=== PATIENT | male | born 1945 | race Caucasian/White ===

== ENCOUNTER 2024-06-07 10:57 | Observation (INO) | payer OTHER ==
[~2024-06-07] VITALS: Ht 177.8 cm; Wt 62.6 kg
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
--- NOTE | 2024-06-07 12:35 | EKG ---
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
[2024-06-07 12:40] LABS: BASOPHILS # (AUTO) 0.03 K/uL (0.00-0.20); BASOPHILS % (AUTO) 0.5 % (0.0-5.0); EOSINOPHILS # (AUTO) 0.13 K/uL (0.00-0.70); EOSINOPHILS % (AUTO) 2.2 % (0.0-8.0); HEMATOCRIT 39.5 % (42-54); IMMATURE GRANULOCYTE ABSOLUTE 0.01 K/uL (0-1); LYMPHOCYTES # (AUTO) 1.6 K/uL (1.0-4.8); LYMPHOCYTES % (AUTO) 26.5 % (21.0-51.0); MEAN CORPUSCULAR HEMOGLOBIN 30.9 pg (27.0-33.0); MEAN CORPUSCULAR HGB CONC 32.2 g/dL (32.0-36.0); MEAN CORPUSCULAR VOLUME 96.1 fL (79-99); MONOCYTES # (AUTO) 0.6 K/uL (0.1-1.0); NEUTROPHILS # (AUTO) 3.6 K/uL (1.8-7.7); NEUTROPHILS % (AUTO) 60.6 % (40.0-77.0); PLATELET COUNT (AUTO) 297 K/uL (130-400); RED BLOOD CELL COUNT(AUTO) 4.11 MIL/uL (4.50-6.20); RED CELL DISTRIBUTION WIDTH 14.7 % (11.0-15.5)
[2024-06-07 12:49] LABS: INR 0.96 (0.85-1.15); PROTHROMBIN TIME 10.2 SEC (9.6-11.6)
[2024-06-07 12:50] LABS: APPEARANCE,URINE CLEAR (CLEAR); BILIRUBIN,URINE NEGATIVE (NEGATIVE); COLOR,URINE YELLOW (YELLOW); GLUCOSE, URINE (UA) NEGATIVE (NEGATIVE); KETONES,URINE NEGATIVE (NEGATIVE); LEUKOCYTE ESTERASE ,URINE 25 Leu/uL (NEGATIVE); NITRATE,URINE NEGATIVE (NEGATIVE); OCCULT BLOOD,URINE NEGATIVE (NEGATIVE); PROTEIN,URINE NEGATIVE (NEGATIVE); UROBILINOGEN,URINE 0.2 mg/dL (0.2-1.0)
[2024-06-07 12:50] LABS: PARTIAL THROMBOPLASTIN TIME 26.3 SEC (26.3-35.5)
[2024-06-07 12:53] LABS: ADD UA MICROSCOPIC YES
[2024-06-07 12:55] LABS: ALBUMIN 2.9 g/dL (3.5-5.0); BILIRUBIN,DIRECT 0.1 mg/dL (0.0-0.3); BILIRUBIN,TOTAL 0.3 mg/dL (0.2-1.0); CREATININE 0.7 mg/dL (0.5-1.3); POTASSIUM 4.6 mmol/L (3.5-5.1); TOTAL PROTEIN, SERUM 5.9 g/dL (6.0-8.3)
[2024-06-07 12:57] LABS: BACTERIA,URINE RARE /HPF (None Seen); MUCUS,URINE RARE LPF (None Seen); RBC,URINE 0-1 /HPF (0-1); SQUAMOUS EPITHELIAL CELL,UR RARE /HPF (0-2)
--- NOTE | 2024-06-07 15:13 | HMCIMG ---
US ABDOMINAL RUQ\E\LTD HISTORY: Right upper abdominal pain COMPARISON: None TECHNIQUE: Right upper quadrant abdominal ultrasound study was performed. FINDINGS: The study is limited due to overlying bowel gas. The visualized portion of the pancreas is within normal limits. Liver measures 15 cm. No gallstone is seen. Common duct measures 4 mm. No evidence of gallbladder wall thickening is seen. Right kidney measures 11.1 x 3.7 x 5 cm. No hydronephrosis is seen of the right kidney. IMPRESSION: 1. No gallstones or ductal dilatation is seen. 2. No hydronephrosis is seen.
[2024-06-07] MEDS ORDERED: IOHEXOL-350 75 ML VIAL IV ONE (15:56)
--- NOTE | 2024-06-07 16:25 | HMCIMG ---
CT ABDOMEN/PELVIS W/CONTRAST HISTORY: Nausea and vomiting COMPARISON: None TECHNIQUE: Multiple sequential axial images of the abdomen and pelvis were obtained from the dome of the diaphragm through symphysis pubis. Patient was not given contrast through intravenous route. Oral contrast was not given. FINDINGS: No pleural effusion is seen bilaterally. Calcified granuloma is seen in the left lower lobe posteriorly. There is no evidence of parenchymal disease or pulmonary nodule of the visualized lower lungs. Degenerative changes of the thoracolumbar spine are present. The heart is not enlarged. There is moderate size hiatal hernia. Small bowel dilatation is seen with fluid-filled may be related to enteritis with early bowel obstruction not excluded. There is diverticulosis. There is dextroscoliosis. The liver, spleen, adrenal glands and pancreas are unremarkable. There is no evidence of hydronephrosis bilaterally. No evidence of renal stone is seen. Fecal material is seen in the colon. There are normal size retroperitoneal and mesenteric lymph nodes. No ascites is seen. Atherosclerotic changes are present. Pelvic sidewalls are symmetric bilaterally. Bladder is well distended without wall thickening. IMPRESSION: 1. Small bowel dilatation is seen with fluid-filled may be related to enteritis with early bowel obstruction not excluded. There is diverticulosis. CT was performed with one or more following dose reduction techniques: automated exposure control, adjustment of the mA and kv according to patient's size, or use of a iterative reconstruction technique.
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
[2024-06-07] MEDS ORDERED: PoTASSium chloRIDE 20MEQ/100ML 100 ML IV PRN (19:00)
[2024-06-07] MEDS ORDERED: MAGNESIUM 2GM PREMIX 50ML 50 ML IV PRN (19:00)
[2024-06-07] MEDS: 0.9%NACL 1000ML 1,000 ML IV SCH (19:12)
[2024-06-07] MEDS ORDERED: LEVO50CA4 PO (20:32)
--- NOTE | 2024-06-07 20:32 | NUR ---
MED RECONCILIATION DONE
--- NOTE | 2024-06-07 20:38 | NUR ---
REPORT GIVEN TO STEPHANIE NG. PT GOING TO RM [id number]
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
[2024-06-07 20:45] VITALS: O2SAT 99
[2024-06-07 20:47] VITALS: BP 158/93; PULSE 76; RESP 19; TEMP 97.5
[2024-06-07] MEDS: FAMOTIDINE 20MG VIAL IV SCH (23:59)
[2024-06-08] VITALS: BP 129/68; PULSE 74; RESP 18; TEMP 98.6
[2024-06-08 04:00] VITALS: BP 125/70; PULSE 77; RESP 18; TEMP 98.2
[2024-06-08 05:04] LABS: BASOPHILS # (AUTO) 0.03 K/uL (0.00-0.20); BASOPHILS % (AUTO) 0.8 % (0.0-5.0); EOSINOPHILS # (AUTO) 0.24 K/uL (0.00-0.70); EOSINOPHILS % (AUTO) 6.1 % (0.0-8.0); IMMATURE GRANULOCYTE ABSOLUTE 0.01 K/uL (0-1); LYMPHOCYTES # (AUTO) 1.6 K/uL (1.0-4.8); LYMPHOCYTES % (AUTO) 41.7 % (21.0-51.0); MEAN CORPUSCULAR HEMOGLOBIN 30.9 pg (27.0-33.0); MEAN CORPUSCULAR HGB CONC 32.9 g/dL (32.0-36.0); MEAN CORPUSCULAR VOLUME 93.7 fL (79-99); MONOCYTES # (AUTO) 0.5 K/uL (0.1-1.0); MONOCYTES % (AUTO) 12.5 % (3.0-13.0); NEUTROPHILS # (AUTO) 1.5 K/uL (1.8-7.7); NEUTROPHILS % (AUTO) 38.6 % (40.0-77.0); PLATELET COUNT (AUTO) 226 K/uL (130-400); RED BLOOD CELL COUNT(AUTO) 3.63 MIL/uL (4.50-6.20); RED CELL DISTRIBUTION WIDTH 14.5 % (11.0-15.5); WHITE BLOOD COUNT (AUTO) 3.9 K/uL (4.8-10.8)
[2024-06-08 05:18] LABS: % IRON SATURATION 25.5 % (30-44)
[2024-06-08 05:19] LABS: ALBUMIN 2.2 g/dL (3.5-5.0); BILIRUBIN,TOTAL 0.3 mg/dL (0.2-1.0); CREATININE 0.6 mg/dL (0.5-1.3); POTASSIUM 3.8 mmol/L (3.5-5.1); TOTAL PROTEIN, SERUM 4.7 g/dL (6.0-8.3)
[2024-06-08 08:04] VITALS: BP 137/76; PULSE 80; RESP 18; TEMP 98.3
[2024-06-08 09:22] VITALS: O2SAT 97
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
[2024-06-08 11:31] VITALS: BP 133/75; PULSE 94; RESP 18; TEMP 97.4
--- NOTE | 2024-06-08 13:24 | DS ---
Discharge Summary Hospital Course Summary: This is a 78-year-old male with no significant medical history that has been consulted to surgery after presenting to the hospital with cramp like abdominal discomfort that began four days prior. Patient reports that he has been having similar discomforts since April 05. Patient reports colonoscopy and EGD 10 days prior with no significant findings. Upon initial workup concerns for possible early obstruction noted but patient has had bowel function and flatus with no significant change since admission. Patient's abdomen nondistended and nontender today. Imaging again concerning for possible early small-bowel obstruction patient was very anxious to go home. He was evaluated by surgery and at which point he already had bowel movements, no abdominal pain and he was tolerating diet. They advised no further intervention. GI panel PCR was sent. Patient was anxious to go home as he is back to his baseline. He was discharged in a stable condition Automation Test Developer(s): Surgery Assessment/Plan: ASSESSMENT: Suspected Gastroenteritis versus early bowel obstruction POA Acute normocytic and normochromic anemia POA Diverticulosis POA Hypothyroidism POA Protein calorie malnutrition POA Recent EGD and colonoscopy POA PLAN: We will admit patient in medical surgical We will keep patient nothing by mouth We will start NS @ 75 ml / hr and re evaluate We will start on Famotidine 20 mg IV bid for GI prophylaxis We will replace electrolytes as needed per protocol We will add prn medication for fever,pain,cough and nausea We will reconcile home meds once medlist available We will request for stool culture and fecal occult blood follow up results We will seek General surgeon consultation Will defer GI consultation with silvio esparza MD We will request dietary consultation to assess malnutrition We will request labs in am Further orders to follow depending on above results Case discussed with attending physician and came up with above treatment and plan of care. Home Medications: Reported Medications Levothyroxine Sodium (Levothyroxine) 50 Mcg Capsule, 1 CAP PO DAILY for 30 Days, #30 CAP 0 Refills 06/07/24 Time spent arranging discharge: 31-60 minutes KELSIE PAUL MD Jun 08, 2024 13:24
--- NOTE | 2024-06-08 14:16 | NUR ---
Nutrition consult per PCM eval Reviewed labs, notes, and medications. EGD and colonoscopy 10 days ago, N/V prior to admin, 28 lb wt loss in 2 months, on CLD, Ca 8.1 (L) per chart review. Wt via standing scale, last BM 06/07/24, no edema, no wounds, excellent nutrition per nursing. Visually assessed moderate fat and muscle loss during visit. Pt reported NKFA, takes MVI QD, UBW ~ 160 lb, visits PCP 2-3x in life, does not like chicken broth, agreeable to ensure clear tid, agreeable to ensure HP strawberry tid. Pt with severe PCM, Supplement thiamin 100 mg/day for 5-7 days + MVI QD for at least 10 days. Advance diet when medically feasible to GI soft/bland diet + ensure HP strawberry. Recommendations: -Provide ensure clear tid w/ trays while Pt on CLD -Monitor PO intake -Encourage PO intake as able -Monitor BM -If no BM >3 days consider stool softener -Monitor electrolytes -Replenish electrolytes per protocol -Monitor wts -Reweigh as able -Order Vit D, vit b-12 labs to rule out deficiencies -Provide b-complex QD -Texture per HEAT TREAT SUPERVISOR recs -Recommend Pt to follow up with PCP -Monitor goals of care RD to follow + available for consult per protocol Addendum: 06/08/24 at [address] Amended: Links added.
--- NOTE | 2024-06-08 15:20 | NUR ---
DISCHARGE PERIPHERAL IV DISCONTINUED. PACKET OF DISCHARGE INSTRUCTIONS AND EDUCATION PROVIDED TO PATIENT AND FAMILY. PATIENT AND FAMILY AWARE OF CONTINUED MEDICATION ON MEDICATION LIST. PATIENT AND FAMILY AWARE TO FOLLOW UP WITH PRIMARY CARE PROVIDER ALL QUESTIONS ANSWERED.
--- NOTE | 2024-06-08 15:21 | NUR ---
DCP Patient states lives with Shant Pérez, Spouse [phone] in a house with walk in shower with bench. 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 States able to complete ADL's on his own. States has a cane but denies using it or any other medical devices. Denied home health services, home care providers or dialysis. PCP - Gaurang Smallwood MD [facility]. Upon discharge, Shant Pérez, Spouse [phone] and assist with care as needed. Upon discharge, does not foresee additional needs. Addendum: 06/08/24 at 1525 by ABDULLAHI MARCANO RN CM Amended: Links added.
[2024-06-10 23:09] LABS: C DIFFICILE TOXIN A/B Not Detected (Not Detected); ENTEROAGGREGATIVE ECOLI Not Detected (Not Detected); GIARDIA LAMBLIA Not Detected (Not Detected); PLESIOMONAS SHIGELOIDES Not Detected (Not Detected); SAPOVIRUS Not Detected (Not Detected); SHIGELLA/ENTEROINVASIVE E COLI Not Detected (Not Detected); VIBRIO Not Detected (Not Detected); VIBRIO CHOLERAE Not Detected (Not Detected)
== END 2024-06-08 15:29 | disposition home or self-care (01) ==
LOC: EDH 10:57 → EDHIP 18:35 → INTOOBSV 18:35 → EDHIP 19:41 → 3AH 20:20
PROVIDERS: ADMIT Internal Medicine; ATTEND Internal Medicine
DX: K57.30 Diverticulosis of large intestine without perforation or abscess without bleeding (principal); E03.9 Hypothyroidism, unspecified; E46 Unspecified protein-calorie malnutrition; E86.0 Dehydration; D64.9 Anemia, unspecified; K52.9 Noninfective gastroenteritis and colitis, unspecified; K29.70 Gastritis, unspecified, without bleeding; Z79.899 Other long term (current) drug therapy; Z68.1 Body mass index [BMI] 19.9 or less, adult
CPT/HCPCS: 96374; 96361 ×2; 82550; 80076; 84484; 80048; 83690; 85025 ×2; 85610; 85730; 81001; 36415 ×2; 74177; 76705; 99291; 93005; 96376; 83540; 83550; 80053; 82270; 87507; J3490 ×2; Q9967; G0378 ×4